=== PATIENT | female | born 1940 | race Caucasian/White ===

== ENCOUNTER 2022-06-26 14:46 | Emergency (ER) | payer OTHER, MEDICAID ==
[~2022-06-26] VITALS: Ht 152.4 cm; Wt 45.4 kg
[2022-06-26 14:54] VITALS: BP_SYST 98
--- NOTE | 2022-06-26 14:54 | NUR ---
Patient triaged. VSS and patient appears in no acute distress at this time. Accompanied by EMT'S , awaiting available bed, and MD notified of need for MSE.
[2022-06-26] MEDS ORDERED: ACETAMINOPHEN 325 MG TABLET PO ONE (15:15)
[2022-06-26 15:41] LABS: HEMOGLOBIN 13.1 g/dL (12.0-16.0); MEAN CORPUSCULAR HEMOGLOBIN 29 pg (27-31); MEAN CORPUSCULAR HGB CONC 33 % (32-36); MEAN CORPUSCULAR VOLUME 87 fL (79.0-98.0); PLATELET COUNT (AUTO) 403 K/uL (130-430); RED BLOOD CELL COUNT(AUTO) 4.58 MIL/uL (4.2-6.2); RED CELL DISTRIBUTION WIDTH 13.7 % (9.0-15.0); WHITE BLOOD COUNT (AUTO) 20.5 K/uL (4.8-10.8)
[2022-06-26 16:06] LABS: BASOPHILS % (MANUAL) 0 % (0-2); EOSINOPHILS % (MANUAL) 0 % (0-7); MONOCYTES % (MANUAL) 4 % (0-11)
[2022-06-26 16:08] LABS: LYMPHOCYTES % (MANUAL) 32 % (20-46)
[2022-06-26 16:19] LABS: ANION GAP 6 (5-15); CALCIUM 9.6 mg/dL (8.4-11.0); CHLORIDE 105 mmol/L (98-107); CREATININE 0.76 mg/dL (0.55-1.30); GLUCOSE 93 mg/dL (70-99); UREA NITROGEN, BLOOD 29 mg/dL (8-21)
[2022-06-26 16:24] LABS: ALANINE AMINOTRANSFERASE 25 U/L (12-78); ALBUMIN 3.6 g/dL (3.4-4.8); ASPARTATE AMINOTRANSFERASE 18 U/L (10-37); TOTAL BILIRUBIN 0.2 mg/dL (0.0-1.0)
--- NOTE | 2022-06-26 19:07 | NUR ---
COVID AND INFLUENZA SWABS OBTAINED AND SENT TO LAB.
[2022-06-26 19:43] LABS: BILIRUBIN,URINE NEGATIVE (NEGATIVE); BLOOD, URINE NEGATIVE (NEGATIVE); COLOR,URINE YELLOW (YELLOW); GLUCOSE,URINE NEGATIVE (NEGATIVE); KETONES,URINE TRACE (NEGATIVE); LEUKOCYTE ESTERASE ,URINE NEGATIVE (NEGATIVE); NITRITE, URINE NEGATIVE (NEGATIVE); PH,URINE 5.5 (5.0-8.0); PROTEIN URINE NEGATIVE (NEGATIVE); UROBILINOGEN,URINE 0.2 (0.2-1.0)
[2022-06-26 19:52] LABS: CLARITY/URINE CLEAR (CLEAR)
--- NOTE | 2022-06-26 21:03 | NUR ---
Patient assisted into bed in room #6, family remains at bedside, informed of plan of care, oriented to room. Patient A/Ox2, confused at times. Per son patient able to ambulated with a steady gait. no s/s od any respiratory distress noted, abd soft nontender to palpation, head lac noted with steri strips intact. Side rails up, will continue to monitor. awaiting MD exam.
--- NOTE | 2022-06-26 21:11 | NUR ---
Xray at bedside.
[2022-06-26] MEDS ORDERED: BACITRACIN 1 GM OINT TP ONE (21:58)
--- NOTE | 2022-06-26 22:36 | NUR ---
ACI GIVEN, SALINE LOC REMOVED, FAMILY STATES UNDERSTANDING. PATIENT REMAINS STABLE FOR DISCHARGE HOME WITH FAMILY. 138/[id number]%
--- NOTE | 2022-06-26 22:38 | NUR ---
WOUND CARE WAS DONE AND DRESSING APPLIED PER ORDER.
[2022-06-26 22:43] VITALS: BP_SYST 138
--- NOTE | 2022-06-26 22:59 | NUR ---
REPORT WAS GIVEN TO [facility], SPOKE WITH TWIN, PATIENT WILL BE RETURNING WITH HER SON.
== END 2022-06-26 22:45 | disposition home or self-care (01) ==
LOC: SED 14:46
DX: S00.01XA Abrasion of scalp, initial encounter (principal); R41.841 Cognitive communication deficit; Z79.899 Other long term (current) drug therapy; Z20.822 Contact with and (suspected) exposure to COVID-19; W01.0XXA Fall on same level from slipping, tripping and stumbling without subsequent striking against object, initial encounter; Y93.89 Activity, other specified; Y92.89 Other specified places as the place of occurrence of the external cause; Y99.8 Other external cause status
CPT/HCPCS: 36415; 70450-TC; 71045; 76376; 80053; 81003; 83605; 83880; 84484; 85007; 85027; 87040; 93005; 99285